=== PATIENT | male | born 1945 ===

== ENCOUNTER 2017-04-21 06:35 | Day surgery (SDC) | payer MEDICARE, MEDICAID ==
[2017-04-08 09:53] VITALS: BMI 26.4
[2017-04-21 07:07] LABS: ADD MANUAL DIFF? NO
[2017-04-21 07:14] LABS: BASO # 0.01 K/mm3 (0.0-2.0); BASO % 0.2 % (0.0-3.0); EOS # 0.2 (0.0-0.7); EOS % 4.3 % (1.5-5.0); GRAN # 2.63 (1.4-6.5); GRAN % 48.9 % (50.0-68.0); HEMATOCRIT 38.5 % (42.0-52.0); LYMPH # 2.1 (1.2-3.4); LYMPH % 38.4 % (22.0-35.0); MEAN CELL VOLUME 90.8 fL (80.0-105.0); MEAN CORPUSCULAR HEMOGLOBIN 30.2 pg (25.0-35.0); MEAN CORPUSCULAR HGB CONC 33.2 g/dl (31.0-37.0); MONO # 0.4 (0.1-0.6); MONO % 8.2 % (1.0-6.0); PLATELET COUNT 306 10^3/uL (120.0-450.0); WHITE BLOOD COUNT 5.4 10^3/ul (4.5-11.0)
[2017-04-21 07:21] LABS: INR 1.08 (0.93-1.08); PARTIAL THROMBOPLASTIN TIME 29.1 Seconds (23.7-30.8)
[2017-04-21] MEDS ORDERED: Iohexol 350mgl/ml 50 ML ONE (08:01)
[2017-04-21] MEDS ORDERED: Lidocaine 2% Inj (20ml) ONE (08:01)
[2017-04-21] MEDS ORDERED: Iodixanol 320 MG/ML 200 ML BOTTLE IV ONE (08:01)
[2017-04-21 08:13] LABS: BLOOD UREA NITROGEN 19 mg/dL (7-21); CARBON DIOXIDE 25 mmol/L (21-33); CHLORIDE 108 mmol/L (98-107); CHOLESTEROL 135 mg/dL (130-200); GFR AFRICAN-AMERICAN > 60; GLUCOSE,RANDOM 96 mg/dL (70-110); POTASSIUM 3.5 mmol/L (3.6-5.0); SODIUM 141 mmol/L (132-148)
[2017-04-21] MEDS ORDERED: Midazolam 2 MG/2 ML VIAL ONE ×2 (08:34→09:05)
[2017-04-21] MEDS ORDERED: Potassium Chloride 20 mEq ER Tab PO ONE (08:47)
[2017-04-21] MEDS ORDERED: Sodium Chloride 0.9% 1,000 ML IV SCH (09:45)
[2017-04-21 09:57] VITALS: RESP 20; TEMP 97.9
[2017-04-21 10:33] VITALS: O2SAT 98
--- NOTE | 2017-04-21 10:36 | CARDCATH ---
PROCEDURE DATE: 04/21/2017 HISTORY: The patient is a 71-year-old male with history of coronary artery bypass surgery who presen ts with chest pain as well as an abnormal stress test. Cardiac catheterization was recommended. PROCEDURES: Left heart catheterization with coronary angiography and left ventriculogram with left i nternal mammary artery angiogram, saphenous vein graft angiogram with left ventricular function visua caron. The right femoral artery was cannulated with a 6-[place] sheath. There were no complications. The findings on catheterization revealed a left ventricle that contracted normally. Estimated ejecti on fraction is 70%. His coronary anatomy revealed a left main artery that was unremarkable. The LAD was subtotally occluded. The circumflex artery revealed diffuse atherosclerosis with critical lesions in the proximal circumfl ex artery. The right coronary artery was a dominant vessel and revealed an 80% stenosis in the proximal portion. The CHEN to the LAD was found to be patent and provided good antegrade flow. The saphenous vein graft to the RCA was found to be patent and provided good antegrade flow to the PD A as well as the posterolateral branch. There was a jump saphenous vein graft to OM1 and OM2, which was found to be patent and provided good antegrade flow. Angio-Seal was used to close the femoral artery site. The patient tolerated the procedure well. IN SUMMARY: The procedure revealed: 1. Triple vessel coronary artery disease. 2. Normal left ventricular function. 3. Patent left internal mammary artery to the left anterior descending. 4. Patent saphenous vein graft to the right coronary artery. 5. Patent jump graft to the obtuse marginal 1 and obtuse marginal 2. Given these findings, the patient's cardiac status is stable post coronary artery bypass surgery. Hi s abnormal stress test is due to small vessel disease which was not bypassed. Given these findings, the patient will need to remain on his aspirin and continue his cardiac risk re duction program. Paul Elena MD cc: [id number] TT: 04/21/2017 10:36:03 victoriano
--- NOTE | 2017-04-21 11:03 | CARD ---
APPROVED REPORT EKG Measurement Heart [id number] <Conclusion> Normal sinus rhythm Left ventricular hypertrophy with QRS widening Abnormal ECG
[2017-04-21 15:19] VITALS: BP 125/93; PULSE 64
== END 2017-04-21 16:15 | disposition home or self-care (01) ==
LOC: CATH 06:35
PROVIDERS: ATTEND Internal Medicine Cardiovascular Disease
DX: I25.10 Atherosclerotic heart disease of native coronary artery without angina pectoris (principal); R94.39 Abnormal result of other cardiovascular function study; R07.9 Chest pain, unspecified; Z95.1 Presence of aortocoronary bypass graft; Z79.82 Long term (current) use of aspirin; E78.00 Pure hypercholesterolemia, unspecified; R73.9 Hyperglycemia, unspecified
CPT/HCPCS: 36415; 80048; 80061; 85025; 85610; 85730; 86850; 86900; 93005; 93458; 99152; C1760; C1769; C2629; J1644; J2250; J3010; J7030; J7040